=== PATIENT | male | born 1980 | race Caucasian/White ===

== ENCOUNTER → 2018-12-16 09:32 | Outpatient (CLI) | payer OTHER, SELFPAY ==
[2018-12-12 15:16] VITALS: BMI 24.1
--- NOTE | 2018-12-16 09:35 | ECHOD_ITS ---
Reason For Study: Valve Replacement eval Procedure This was a 2D Doppler, Color Flow transthoracic echocardiogram. The exam was of adequate technical quality. Exam performed in department. Left Ventricle Normal LV size. Left ventricular systolic function is normal. The estimated ejection fraction is 60 %. No evidence for diastolic dysfunction. No regional wall motion abnormalities noted. Right Ventricle Normal RV size. Normal systolic function. Atria Normal left atrium. Normal right atrium. No doppler evidence for ASD. Mitral Valve Mild diffuse mitral valve thickening. An annuloplasty ring is noted in the mitral position. MIld (1+) transvalvular insufficiency of the mitral valve. Tricuspid Valve Normal tricuspid valve. Trivial tricuspid valve insufficiency. Aortic Valve Trisinus/trileaflet aortic valve. Normal aortic valve. Pulmonic Valve The pulmonic valve is not well visualized. Great Vessels Normal sized aortic root. Pericardium/Pleural No pericardial effusion. MMode/2D Measurements & Calculations LVIDd: 4.5 cm IVSd: 1.0 cm Ao root diam: 3.5 cm LVIDs: 2.6 cm LVPWd: 1.2 cm LA dimension: 3.0 cm RVDd: 3.6 cm FS: 43.1 % LAV(MOD-bp): 38.1 ml LA A4 area: 12.7 cm2 RA A4 area: 14.4 cm2 LAV(MOD-bp) Indexed: 18.9 ml/m2 LAV(MOD-sp2): 49.3 ml LAV(MOD-sp4): 29.1 ml Time Measurements MV dec time: 0.22 sec Doppler Measurements & Calculations MV E max marco: 103.0 cm/sec Lat Peak E' Marco: 10.1 cm/sec Med Peak E' Marco: 11.1 cm/sec MV A max marco: 59.3 cm/sec E/E' lat: 10.2 E/E' med: 9.3 MV E/A: 1.7 MV V2 max: 115.6 cm/sec MV P1/2t max marco: 116.5 cm/sec Ao V2 max: 80.9 cm/sec MV max P.3 mmHg MV P1/2t: 110.5 msec Ao max P.6 mmHg MV V2 mean: 65.5 cm/sec MV dec slope: 308.8 cm/sec2 MV mean P.0 mmHg MVA(P1/2t): 2.0 cm2 MV V2 VTI: 33.0 cm LV V1 max: 69.2 cm/sec MR max marco: 484.0 cm/sec PA V2 max: 89.6 cm/sec LV V1 max P.9 mmHg MR max P.7 mmHg MR mean marco: 398.2 cm/sec MR mean P.9 mmHg MR VTI: 167.3 cm Interpretation Summary Left ventricular systolic function is normal. The estimated ejection fraction is 60 %. An annuloplasty ring is noted in the mitral position. Mild diffuse mitral valve thickening. MIld (1+) transvalvular insufficiency of the mitral valve. Trivial tricuspid valve insufficiency. No evidence for diastolic dysfunction. Ordering Physician: Gene Rodríguez Referring Physician: Comfort Suero Performed By: Nilesh Rubin RCS
== END ==
PROVIDERS: Family Provider Nurse Practitioner; PCP Nurse Practitioner; Referring Provider Internal Medicine Cardiovascular Disease; Visit Provider Internal Medicine Cardiovascular Disease
DX: Z98.890 Other specified postprocedural states (principal)
CPT/HCPCS: 93306

== ENCOUNTER → 2020-11-15 12:45 | Outpatient (CLI) | payer OTHER, SELFPAY ==
[2019-11-20 09:27] VITALS: BMI 24.9
--- NOTE | 2020-11-15 12:49 | ECHOD_ITS ---
Reason For Study: MVP S/P MV REPAIR Procedure This was a 2D Doppler, Color Flow transthoracic echocardiogram. The exam was of adequate technical quality. Exam performed in department. Left Ventricle Normal LV size. Left ventricular systolic function is normal. The estimated ejection fraction is 65 %. No evidence for diastolic dysfunction. No regional wall motion abnormalities noted. Right Ventricle Normal RV size. Normal systolic function. Atria Normal left atrium. Normal right atrium. No doppler evidence for ASD. Mitral Valve Mild diffuse mitral valve thickening. An annuloplasty ring is noted in the mitral position. Trivial transvalvular insufficiency of the mitral valve. Tricuspid Valve Normal tricuspid valve. Trivial tricuspid valve insufficiency. Unable to estimate RV systolic pressure due to insufficient tricuspid regurgitant envelope. Aortic Valve Trisinus/trileaflet aortic valve. Normal aortic valve. Pulmonic Valve The pulmonic valve is not well visualized. Great Vessels Normal sized aortic root. Pericardium/Pleural No pericardial effusion. MMode/2D Measurements & Calculations LVIDd: 4.7 cm IVSd: 0.99 cm Ao root diam: 3.7 cm LVIDs: 3.1 cm LVPWd: 1.0 cm RVDd: 3.7 cm FS: 34.0 % LAV(MOD-bp): 55.3 ml LA A4 area: 16.2 cm2 LA dimension(2D): 3.5 cm LAV(MOD-bp) Indexed: 26.8 ml/m2 LAV(MOD-sp2): 57.3 ml LAV(MOD-sp4): 43.3 ml RA A4 area: 16.2 cm2 Time Measurements MV dec time: 0.22 sec Doppler Measurements & Calculations MV E max marco: 97.1 cm/sec Lat Peak E' Marco: 12.5 cm/sec Med Peak E' Marco: 11.1 cm/sec MV A max marco: 68.7 cm/sec E/E' lat: 7.8 E/E' med: 8.8 MV E/A: 1.4 Ao V2 max: 102.6 cm/sec LV V1 max: 89.0 cm/sec PA V2 max: 84.5 cm/sec Ao max P.2 mmHg LV V1 max P.2 mmHg ECHO/Echo Complete Interpretation Summary Left ventricular systolic function is normal. The estimated ejection fraction is 65 %. An annuloplasty ring is noted in the mitral position. Mild diffuse mitral valve thickening. Trivial transvalvular insufficiency of the mitral valve. Trivial tricuspid valve insufficiency. Unable to estimate RV systolic pressure due to insufficient tricuspid regurgita nt envelope. No evidence for diastolic dysfunction. Ordering Physician: Gene Rodríguez Referring Physician: Comfort Suero Performed By: Rosemary Hinojosa, DEEJAY, RVT
== END ==
PROVIDERS: PCP Nurse Practitioner; Referring Provider Internal Medicine Cardiovascular Disease; Visit Provider Internal Medicine Cardiovascular Disease
DX: I34.1 Nonrheumatic mitral (valve) prolapse (principal); Z98.890 Other specified postprocedural states
CPT/HCPCS: 93306

== ENCOUNTER → 2022-11-27 | Outpatient (CLI) | payer OTHER, SELFPAY ==
--- NOTE | 2022-11-27 | ECHOD_ITS ---
Reason For Study: s/p MV Repair Procedure This was a 2D Doppler, Color Flow transthoracic echocardiogram. Exam performed in department. Left Ventricle Normal LV size. Left ventricular systolic function is normal. The estimated ejection fraction is 55 %. No regional wall motion abnormalities noted. Right Ventricle Normal RV size. Normal systolic function. Atria Normal left atrium. Normal right atrium. Mitral Valve Status post mitral valve repair with annuloplasty ring. Tricuspid Valve Normal tricuspid valve. Mild tricuspid valve insufficiency. Pulmonary artery systolic pressure is 20 mmHg. Aortic Valve Normal aortic valve. Trisinus/trileaflet aortic valve. Pulmonic Valve Normal pulmonic valve. Great Vessels Normal aortic root. The pulmonary artery is normal size. Normal inferior vena cava. Pericardium/Pleural No pericardial effusion. MMode/2D Measurements & Calculations LVIDd: 4.8 cm IVSd: 0.99 cm Ao root diam: 3.6 cm LVIDs: 3.0 cm LVPWd: 0.95 cm LA dimension: 3.1 cm RVDd: 4.1 cm FS: 37.5 % LAV(MOD-bp): 41.0 ml LVAd ap4: 27.8 cm2 SV(MOD-sp4): 46.1 ml LAV(MOD-bp) Indexed: 20.3 ml/m2 LVLd ap4: 7.6 cm LAV(MOD-sp2): 47.6 ml EDV(MOD-sp4): 85.1 ml LAV(MOD-sp4): 34.4 ml EDV(sp4-el): 85.6 ml LVAs ap4: 17.2 cm2 LVLs ap4: 6.6 cm ESV(MOD-sp4): 39.1 ml ESV(sp4-el): 38.4 ml EF(MOD-sp4): 54.1 % EF(sp4-el): 55.2 % SV(sp4-el): 47.3 ml LA A4 area: 14.1 cm2 RA A4 area: 13.9 cm2 TAPSE: 1.7 cm Time Measurements MV dec time: 0.21 sec Doppler Measurements & Calculations MV E max marco: 84.1 cm/sec Lat Peak E' Marco: 13.8 cm/sec Med Peak E' Marco: 10.5 cm/sec MV A max marco: 56.1 cm/sec E/E' lat: 6.1 E/E' med: 8.0 MV E/A: 1.5 MV V2 max: 92.6 cm/sec MV P1/2t max marco: 92.6 cm/sec Ao V2 max: 76.7 cm/sec MV max P.4 mmHg MV P1/2t: 75.1 msec Ao max P.4 mmHg MV V2 mean: 58.3 cm/sec MV dec slope: 361.2 cm/sec2 MV mean P.5 mmHg MV V2 VTI: 26.2 cm MVA(P1/2t): 2.9 cm2 PA V2 max: 83.0 cm/sec TR max marco: 196.6 cm/sec TR max P.5 mmHg ECHO/Echo Complete Interpretation Summary Status post mitral valve repair with annuloplasty ring. Normal LV size. Left ventricular systolic function is normal. The estimated ejection fraction is 55 %. Pulmonary artery systolic pressure is 20 mmHg. Ordering Physician: Gene Rodríguez Performed By: Nilesh Rubin RCS
== END | disposition home or self-care (01) ==
LOC: CVS 12:38
PROVIDERS: PCP Nurse Practitioner Family; Referring Provider Internal Medicine Cardiovascular Disease; Visit Provider Internal Medicine Cardiovascular Disease
DX: I34.0 Nonrheumatic mitral (valve) insufficiency (principal); I34.1 Nonrheumatic mitral (valve) prolapse; Z98.890 Other specified postprocedural states
CPT/HCPCS: 93306